=== PATIENT | male | born 1950 | race Caucasian/White ===

== ENCOUNTER 2019-07-26 13:16 | Inpatient (IN) | payer MEDICARE ==
[~2019-07-26] VITALS: Ht 185.4 cm; Wt 86.6 kg
[2019-07-26 13:38] LABS: BASOPHILS # (AUTO) 0.02 x10^3/uL (0-0.1); BASOPHILS % (AUTO) 0 % (0-1); EOSINOPHILS # (AUTO) 0.07 x10^3/uL (0-0.4); EOSINOPHILS % (AUTO) 1 % (1-7); LYMPHOCYTES # (AUTO) 1.38 x10^3/uL (1-3.4); LYMPHOCYTES % (AUTO) 21 % (22-44); MD NO; MEAN CORPUSCULAR HEMOGLOBIN 31.1 pg (27.5-34.5); MEAN CORPUSCULAR VOLUME 91.4 fL (81-97); MEAN PLATELET VOLUME 7.9 fL (7.4-10.4); MONOCYTES # (AUTO) 0.28 x10^3/uL (0.2-0.8); MONOCYTES % (AUTO) 4 % (2-9); NEUTROPHILS # (AUTO) 4.78 x10^3/uL (1.8-6.8); NEUTROPHILS % (AUTO) 73 % (42-75); PLATELET COUNT 218 x10^3/uL (130-400); RED BLOOD COUNT 4.92 x10^6/uL (4.38-5.82); RED CELL DISTRIBUTION WIDTH 13.4 % (9.4-14.8)
--- NOTE | 2019-07-26 13:39 | NUR ---
PT BIB BY [facility] FOR HAVING A NEAR SYNCOPLE EPISODE WHILE SHOPPING. DENIES LOC. UPON [facility] SAID HIS BLOOD SUGAR WAS 600+ AND HIS HR WAS 44. RECEIVED ABOUT 400ML OF NS DIRECTOR PACKAGING. DENIES HISTORY OF HEART BLOCK. EKG COMPLETED. PT IS CONNECTED TO STEEL SAMPLER AND DEFIB PLACED ON PT WITH CRASH CART IN ROOM. PT IS RESTING IN [facility]. URINAL PROVIDED. HISTORY OF STROKE AND DMII
[2019-07-26 13:49] LABS: ALBUMIN 2.9 g/dL (3.4-5.0); ANION GAP 10 mmol/L (5-15); CALCIUM 8.7 mg/dL (8.5-10.1); CHLORIDE 93 mmol/L (98-107)
[2019-07-26 13:50] LABS: INTERNATIONAL NORMALIZED RATIO 0.94 (0.93-1.1)
[2019-07-26 13:55] LABS: ALANINE AMINOTRANSFERASE 44 U/L (12-78); ALKALINE PHOSPHATASE 104 U/L (45-117); BILIRUBIN,TOTAL 0.6 mg/dL (0.2-1.0); CREATININE 1.44 mg/dL (0.7-1.3); FREE T4 (FREE THYROXINE) 1.59 ng/dL (0.76-1.46); TOTAL PROTEIN 6.5 g/dL (6.4-8.2); TROPONIN I 0.069 ng/mL (0.000-0.045)
--- NOTE | 2019-07-26 14:03 | NUR ---
PT RESTING IN [facility]. BRADYCARDIA ON THE MONITOR. PT STATED "JOSE BEEN IN BRADYCARDIA FOR 8 YEARS AND I DONT WANT A PACEMAKER"
--- NOTE | 2019-07-26 14:13 | NUR ---
[facility]
[2019-07-26 14:28] LABS: PH, VENOUS 7.374 pH (7.320-7.420)
[2019-07-26] MEDS ORDERED: SODIUM CHLORIDE 0.9% 1,000ML IVBOLUS ONE ×2 (14:30→15:00)
--- NOTE | 2019-07-26 14:42 | NUR ---
PT RESTING IN [facility]. DOESNT WANT PACEMAKER PROCEDURE UNTIL HE KNOWS HOW MUCH IT WILL COST HIM
[2019-07-26 14:52] LABS: ACETONE, SERUM Small (20mg/dL) (Negative)
[2019-07-26] MEDS ORDERED: INSULIN REGULAR 100 UNITS/ML, 3ML VIAL IV ONE (15:00)
[2019-07-26] MEDS ORDERED: INSULIN SINGLE DOSE, ER ONE ×2 (15:04→15:06)
[2019-07-26] MEDS ORDERED: MIDAZOLAM 1 MG/ML, 5ML ONE (15:22)
[2019-07-26] MEDS ORDERED: FENTANYL PF 250 MCG/5ML ONE (15:22)
[2019-07-26] MEDS ORDERED: CEFAZOLIN PMX 1GM/50ML 50 ML ONE (15:22)
[2019-07-26] MEDS ORDERED: LIDOCAINE 1%, 20ML ONE (15:23)
[2019-07-26] MEDS ORDERED: CEFAZOLIN 1,000 MG ONE (15:23)
[2019-07-26] MEDS ORDERED: LABETALOL 5MG/ML, 20ML IVPush PRN (15:30)
[2019-07-26] MEDS ORDERED: DEXTROSE 4 GM TAB.CHEW PO PRN (15:30)
[2019-07-26] MEDS ORDERED: GLUCAGON 1 MG IM PRN (15:30)
[2019-07-26] MEDS ORDERED: ONDANSETRON 2MG/ML, 2ML IVPush PRN (15:30)
[2019-07-26] MEDS ORDERED: DEXTROSE 50%, 50ML SYRINGE IVPush PRN (15:30)
[2019-07-26] MEDS ORDERED: ACETAMINOPHEN 325 MG TABLET PO PRN ×2 (15:30→16:00)
[2019-07-26] MEDS ORDERED: hydrALAzine 20 MG/ML, 1ML IVPush PRN (15:30)
[2019-07-26] MEDS ORDERED: LACTATED RINGERS 1,000 ML IV SCH (15:30)
[2019-07-26] MEDS ORDERED: SODIUM POLYSTYRENE SULFONATE ORAL SUSP PO ONE (15:30)
[2019-07-26] MEDS ORDERED: PROMETHAZINE 25 MG/ML, 1ML IM PRN (15:30)
[2019-07-26] MEDS ORDERED: DIPHENHYDRAMINE 50 MG/ML, 1ML ONE (15:32)
[2019-07-26] MEDS ORDERED: HOLD MEDICATION MC PRN (16:00)
[2019-07-26] MEDS ORDERED: HYDROcodone/APAP 5/325 TABLET PO PRN (16:00)
[2019-07-26] MEDS ORDERED: ZOLPIDEM 5MG TABLET PO PRN (16:00)
[2019-07-26] MEDS ORDERED: ONDANSETRON 2MG/ML, 2ML IV PRN (16:00)
[2019-07-26 16:01] LABS: ANION GAP 6 mmol/L (5-15); CALCIUM 8.1 mg/dL (8.5-10.1); CHLORIDE 100 mmol/L (98-107); CHOLESTEROL, TOTAL 336 mg/dL (140-239); CREATININE 1.16 mg/dL (0.7-1.3); TRIGLYCERIDES 828 mg/dL (50-200)
[2019-07-26 16:04] LABS: CHOL/HDL RATIO 9.6; HDL CHOL % 10 % (26-37); HDL CHOLESTEROL (DIRECT) 35 mg/dL (40-60); TROPONIN I 0.087 ng/mL (0.000-0.045)
[2019-07-26 16:45] LABS: ESTIMATED AVERAGE GLUCOSE 355 mg/dL (0-126)
[2019-07-26 17:03] VITALS: BP 188/99
[2019-07-26] MEDS ORDERED: AMLODIPINE 10 MG TAB PO ONE (17:30)
[2019-07-26] MEDS: LACTATED RINGERS 1,000 ML IV SCH ×2 (17:33→21:27)
[2019-07-26] MEDS: INSULIN LISPRO 100 UNITS/ML, PEN SQ-INSULIN SCH ×2 (17:45→21:57)
[2019-07-26] MEDS ORDERED: ASPI81TA45 PO (18:27)
[2019-07-26 19:15] VITALS: BP 152/81
[2019-07-26] MEDS: SODIUM CHLORIDE FLUSH 10ML SYR IVF SCH ×2 (21:00→21:27)
[2019-07-26 21:13] LABS: ANION GAP 9 mmol/L (5-15); CALCIUM 9.1 mg/dL (8.5-10.1); CHLORIDE 102 mmol/L (98-107); CREATININE 1.18 mg/dL (0.7-1.3)
[2019-07-26] MEDS: ATORVASTATIN 40 MG TABLET PO SCH (21:33)
[2019-07-26] MEDS: INSULIN GLARGINE 100 UNITS/ML, PEN SQ-INSULIN SCH (21:58)
[2019-07-26] MEDS: SODIUM CHLORIDE 0.9% 1,000 ML IV SCH (23:41)
[2019-07-26] MEDS: CEFAZOLIN PMX 1GM/50ML 50 ML IVPB SCH (23:41)
[2019-07-27 02:10] VITALS: BP 160/82
[2019-07-27 05:23] LABS: ALBUMIN 2.8 g/dL (3.4-5.0); ANION GAP 10 mmol/L (5-15); CALCIUM 8.3 mg/dL (8.5-10.1); CHLORIDE 108 mmol/L (98-107)
[2019-07-27 05:26] LABS: ALANINE AMINOTRANSFERASE 36 U/L (12-78); ALKALINE PHOSPHATASE 90 U/L (45-117); BILIRUBIN,TOTAL 0.7 mg/dL (0.2-1.0); CREATININE 1.02 mg/dL (0.7-1.3); TOTAL PROTEIN 6.1 g/dL (6.4-8.2)
[2019-07-27 06:59] VITALS: BP 162/87
[2019-07-27 07:35] LABS: BASOPHILS # (AUTO) 0.03 x10^3/uL (0-0.1); BASOPHILS % (AUTO) 0 % (0-1); EOSINOPHILS # (AUTO) 0.14 x10^3/uL (0-0.4); EOSINOPHILS % (AUTO) 1 % (1-7); LYMPHOCYTES # (AUTO) 2.98 x10^3/uL (1-3.4); LYMPHOCYTES % (AUTO) 25 % (22-44); MD NO; MEAN CORPUSCULAR HEMOGLOBIN 31.2 pg (27.5-34.5); MEAN CORPUSCULAR HGB CONC 33.7 g/dL (33.2-36.2); MEAN CORPUSCULAR VOLUME 92.6 fL (81-97); MEAN PLATELET VOLUME 8.5 fL (7.4-10.4); MONOCYTES % (AUTO) 6 % (2-9); NEUTROPHILS # (AUTO) 8.15 x10^3/uL (1.8-6.8); NEUTROPHILS % (AUTO) 68 % (42-75); PLATELET COUNT 218 x10^3/uL (130-400); RED CELL DISTRIBUTION WIDTH 13.6 % (9.4-14.8)
[2019-07-27] MEDS: SODIUM CHLORIDE FLUSH 10ML SYR IVF SCH ×4 (07:41→21:00)
[2019-07-27] MEDS: CEFAZOLIN PMX 1GM/50ML 50 ML IVPB SCH (07:41)
[2019-07-27] MEDS: SODIUM CHLORIDE 0.9% 1,000 ML IV SCH (07:45)
[2019-07-27] MEDS: INSULIN GLARGINE 100 UNITS/ML, PEN SQ-INSULIN SCH ×2 (07:55→21:31)
[2019-07-27] MEDS: INSULIN LISPRO 100 UNITS/ML, PEN SQ-INSULIN SCH ×4 (07:56→21:31)
[2019-07-27] MEDS ORDERED: AMLODIPINE 10 MG TAB PO SCH (09:00)
[2019-07-27 14:40] VITALS: BP 144/79
[2019-07-27] MEDS: SPIRONOLACTONE 25 MG TABLET PO SCH (15:20)
[2019-07-27] MEDS ORDERED: LACTATED RINGERS 1,000 ML IV SCH (15:30)
[2019-07-27] MEDS: CARVEDILOL 6.25 MG TABLET PO SCH (18:21)
[2019-07-27 19:00] VITALS: BP 159/87
[2019-07-27] MEDS: LISINOPRIL 10 MG TABLET PO SCH (21:30)
[2019-07-27] MEDS: ATORVASTATIN 40 MG TABLET PO SCH (21:30)
[2019-07-28 03:07] VITALS: BP 136/76
[2019-07-28 05:11] LABS: ANION GAP 6 mmol/L (5-15); CALCIUM 8.4 mg/dL (8.5-10.1); CHLORIDE 109 mmol/L (98-107); CREATININE 0.85 mg/dL (0.7-1.3)
[2019-07-28 05:12] LABS: BASOPHILS # (AUTO) 0.04 x10^3/uL (0-0.1); BASOPHILS % (AUTO) 1 % (0-1); EOSINOPHILS # (AUTO) 0.14 x10^3/uL (0-0.4); EOSINOPHILS % (AUTO) 2 % (1-7); LYMPHOCYTES # (AUTO) 2.12 x10^3/uL (1-3.4); LYMPHOCYTES % (AUTO) 24 % (22-44); MD NO; MEAN CORPUSCULAR HEMOGLOBIN 30.8 pg (27.5-34.5); MEAN CORPUSCULAR HGB CONC 33.7 g/dL (33.2-36.2); MEAN CORPUSCULAR VOLUME 91.5 fL (81-97); MEAN PLATELET VOLUME 7.9 fL (7.4-10.4); MONOCYTES # (AUTO) 0.56 x10^3/uL (0.2-0.8); MONOCYTES % (AUTO) 6 % (2-9); NEUTROPHILS # (AUTO) 6.13 x10^3/uL (1.8-6.8); NEUTROPHILS % (AUTO) 68 % (42-75); PLATELET COUNT 191 x10^3/uL (130-400); RED BLOOD COUNT 4.66 x10^6/uL (4.38-5.82); RED CELL DISTRIBUTION WIDTH 13.7 % (9.4-14.8)
[2019-07-28 06:17] VITALS: BP 126/79
[2019-07-28] MEDS: CARVEDILOL 6.25 MG TABLET PO SCH (06:18)
[2019-07-28] MEDS: INSULIN LISPRO 100 UNITS/ML, PEN SQ-INSULIN SCH ×2 (07:00→12:23)
[2019-07-28] MEDS: SODIUM CHLORIDE FLUSH 10ML SYR IVF SCH ×2 (09:00)
[2019-07-28] MEDS ORDERED: AMLODIPINE 5 MG TABLET PO SCH (09:00)
[2019-07-28] MEDS ORDERED: LISINOPRIL 10 MG TABLET PO SCH (09:00)
[2019-07-28 09:05] VITALS: BP 108/65
[2019-07-28] MEDS: SPIRONOLACTONE 25 MG TABLET PO SCH (09:45)
[2019-07-28] MEDS: LISINOPRIL 10 MG TABLET PO SCH (09:46)
[2019-07-28] MEDS: INSULIN GLARGINE 100 UNITS/ML, PEN SQ-INSULIN SCH (09:47)
[2019-07-28 13:05] VITALS: BP 112/61
[2019-07-28] MEDS ORDERED: SPIR25TA PO (16:58)
[2019-07-28] MEDS ORDERED: INSU100I13 SQ-INSULIN (16:58)
[2019-07-28] MEDS ORDERED: CARV12.52 PO (16:58)
[2019-07-28] MEDS ORDERED: LISI-170 PO (16:58)
[2019-07-28] MEDS ORDERED: ATOR40TA78 PO (16:58)
[2019-07-28] MEDS ORDERED: CARVEDILOL 12.5 MG TABLET PO SCH (18:00)
[2019-07-29] MEDS ORDERED: LISINOPRIL 20 MG TABLET PO SCH (09:00)
== END 2019-07-28 16:00 | disposition left against medical advice (07) | DRG 242 ==
LOC: ED 14:22 → EDIP 15:24 → 5SO 16:54
PROVIDERS: ADMIT Internal Medicine Cardiovascular Disease; ATTEND Internal Medicine Cardiovascular Disease
PROC: 0JH606Z Insertion of Pacemaker, Dual Chamber into Chest Subcutaneous Tissue and Fascia, Open Approach (ICD-10-PCS; principal; 2019-07-26)
PROC: 02H63JZ Insertion of Pacemaker Lead into Right Atrium, Percutaneous Approach (ICD-10-PCS; 2019-07-26)
PROC: 02HK3JZ Insertion of Pacemaker Lead into Right Ventricle, Percutaneous Approach (ICD-10-PCS; 2019-07-26)
DX: I44.2 Atrioventricular block, complete (principal); E11.00 Type 2 diabetes mellitus with hyperosmolarity without nonketotic hyperglycemic-hyperosmolar coma (NKHHC); I24.8 Other forms of acute ischemic heart disease; Z86.73 Personal history of transient ischemic attack (TIA), and cerebral infarction without residual deficits; I10 Essential (primary) hypertension; Z66 Do not resuscitate; E87.5 Hyperkalemia; Z91.14 Patient's other noncompliance with medication regimen; E78.5 Hyperlipidemia, unspecified
CPT/HCPCS: 33208; 36415; 71045; 80048; 80053; 80061; 82010; 82803; 82962; 83036; 83735; 84439; 84443; 84484; 85025; 85610; 85730; 93005; 93306; 93356; 96374; 99156; 99157; C1779; C1785; C1892; G0378; J0690; J2250; J3010; J0360; J1200; J1815; J7030; J7120